=== PATIENT | male | born 1970 | race Caucasian/White ===

== ENCOUNTER 2017-05-17 13:38 | Emergency (ER) | payer BC ==
[2017-05-17 13:57] VITALS: BP 184/126
--- NOTE | 2017-05-17 14:40 | UC ---
Respiratory Complaint HPI - HPI Summary HPI Summary: Ill x about a week cough wheezing SOB no fever/chills no CP hx bronchitis - History of Current Complaint Chief Complaint: UCRespiratory Stated Complaint: CHEST CONGESTION SOB COUGH Time Seen by Provider: 05/17/17 14:26 Onset/Duration: Gradual Onset, Lasting Days - 5-7 Timing: Constant Severity Initially: Mild Severity Currently: Moderate Pain Intensity: 2 Pain Scale Used: 0-10 Numeric Character: Cough: Nonproductive Aggravating Factors: Exertion, Recumbent Position Associated Signs And Symptoms: Positive: Wheezing Related History: Similar Episode/Dx as: - bronchitis - Allergies/Home Medications Allergies/Adverse Reactions: Allergies Allergy/AdvReac Type Severity Reaction Status Date / Time No Known Allergies Allergy Verified 05/17/17 13:58 Home Medications: Home Medications Atorvastatin* [Lipitor 10 MG*] 1 tab PO DAILY 05/17/17 [History Confirmed ] Carvedilol TAB* [Coreg TAB*] 1 tab PO DAILY 05/17/17 [History Confirmed 05/17/17 ] Cholecalciferol [Vitamin D-3] 1 tab PO DAILY 05/17/17 [History Confirmed ] Losartan TAB* [Cozaar TAB*] 1 tab PO DAILY 05/17/17 [History Confirmed 05/17/17] PMH/Surg Hx/FS Hx/Imm Hx Previously Healthy: Yes Endocrine History: Dyslipidemia Cardiovascular History: Hypertension - Surgical History Surgical History: None - Family History Known Family History: Positive: Cardiac Disease, Hypertension - Social History Alcohol Use: Occasionally Substance Use Type: None Smoking Status (MU): Former Smoker Review of Systems Constitutional: Negative Skin: Negative Eyes: Negative ENT: Negative Respiratory: Shortness Of Breath, Cough Cardiovascular: Negative Gastrointestinal: Negative Genitourinary: Negative Motor: Negative Neurovascular: Negative Musculoskeletal: Negative Neurological: Negative Psychological: Negative Is Patient Immunocompromised?: No All Other Systems Reviewed And Are Negative: Yes Physical Exam Triage Information Reviewed: Yes Appearance: Well-Appearing, No Pain Distress, Well-Nourished Vital Signs: Initial Vital Signs Temp 97.3 F 05/17/17 13:53 Pulse 88 05/17/17 13:53 Resp 18 05/17/17 13:53 BP 184/126 05/17/17 13:53 Pulse Ox 97 05/17/17 13:53 Vital Signs Reviewed: Yes Eyes: Positive: Conjunctiva Clear ENT: Positive: Hearing grossly normal. Negative: Nasal congestion, Nasal drainage, Trismus, Muffled voice, Hoarse voice Neck: Positive: Supple, Nontender, No Lymphadenopathy Respiratory: Positive: Lungs clear, Normal breath sounds, Wheezing Cardiovascular: Positive: RRR, No Murmur Musculoskeletal: Positive: ROM Intact, No Edema Neurological: Positive: Alert, Muscle Tone Normal Skin Exam: Normal UC Diagnostic Evaluation - Laboratory O2 Sat by Pulse Oximetry: 97 - normal/not hypoxic - Radiology Xray Interpretation: No Acute Changes Radiology Interpretation Completed By: Radiologist Re-Evaluation - Re-Evaluation First Eval Re-Evaluation Time: 15:23 Change: Improved - better air movement Respiratory Course/Dx - Differential Dx/Diagnosis Provider Diagnoses: acute bronchitis. hypertension Discharge - Discharge Plan Condition: Stable Disposition: HOME Patient Education Materials: Acute Bronchitis (ED), Bronchospasm (ED), Hypertension (ED) Referrals: Ray Murphy DO [Primary Care Provider] - 3 Days Additional Instructions: to ER for new or worsening symptoms
[2017-05-17] MEDS ORDERED: Albuterol 2.5 MG/3 ML NEB.SOL* (0.083%) INH ONE (14:42)
[2017-05-17] MEDS ORDERED: Ipratropium 0.5MG/2.5ML NEB* 0.5 MG/2.5 ML NEB.SOLN INH ONE (14:42)
[2017-05-17] MEDS ORDERED: predniSONE TAB* 20 MG PO ONE (14:45)
--- NOTE | 2017-05-17 14:56 | RAD ---
INDICATION: Cough, wheezing, decreased breath sounds at the LEFT lung base. Shortness of breath for a week. Former tobacco use. COMPARISON: No relevant prior exams available on the [facility] [place]. TECHNIQUE: Dual energy PA and routine lateral views of the chest were obtained. REPORT: Mildly elevated lung volumes. Clear lungs and pleural spaces. Negative for pneumothorax. The heart, pulmonary vasculature, and mediastinal contours are unremarkable. Unremarkable osseous structures and soft tissue contours. IMPRESSION: 1. No evidence for pneumonia. 2. Mildly elevated lung volumes; assess for potential obstructive lung disease.
[2017-05-17] MEDS ORDERED: Albuterol HFA INHALER* 8 gm MDI INH ONE (15:23)
== END 2017-05-17 16:05 | disposition home or self-care (01) ==
LOC: UCEAST 13:38
DX: J20.9 Acute bronchitis, unspecified (principal); E78.5 Hyperlipidemia, unspecified; I10 Essential (primary) hypertension; Z87.891 Personal history of nicotine dependence
CPT/HCPCS: 71020; 99203; A9270-GY; G0463; J7512; J7644